=== PATIENT | female | born 1970 | race Caucasian/White ===

== ENCOUNTER 2019-01-31 15:13 | Inpatient (IN) | payer MEDICAID ==
[~2019-01-31] VITALS: Ht 165.1 cm; Wt 71.3 kg
[~2019-01-31 15:13] MED LIST: AMLO-147 PO; DOCU-144 PO; FER325 PO
[2019-01-31] MEDS ORDERED: SOD CHLORIDE 0.9% 500 ML IV STA (15:15)
[2019-01-31] MEDS ORDERED: KETOROLAC 30 MG INJ IV STA (15:26)
[2019-01-31] MEDS ORDERED: FENTAnyl 50 MCG/ML VIAL IV PRN (15:30)
[2019-01-31] MEDS ORDERED: hydrALAzine 20 MG INJ IV ONE (16:00)
[2019-01-31] MEDS ORDERED: ACETAMINOPHEN 325 MG TAB PO PRN (23:00)
[2019-01-31] MEDS ORDERED: ONDANSETRON 4 MG INJ IV PRN (23:00)
[2019-01-31 23:09] VITALS: Ht 165.1 cm; Wt 71.3 kg
[2019-01-31 23:23] VITALS: BP 144/62; PULSE 84; RESP 18
[2019-02-01] VITALS (27 sets, daily range): BP systolic 129–200; BP diastolic 56–91; PULSE 71–91; RESP 14–25
[2019-02-01] MEDS ORDERED: morphine 2 MG INJ IV STA (08:29)
[2019-02-01] MEDS: LACTATED RINGER'S 1,000 ML IV SCH ×2 (09:31→14:42)
[2019-02-01] MEDS ORDERED: SEVOFLURANE 15 MIN ONE (12:15)
[2019-02-01] MEDS ORDERED: FENTAnyl 50 MCG/ML VIAL ONE (12:17)
[2019-02-01] MEDS ORDERED: FAMOTIDINE 20 MG INJ ONE (12:33)
[2019-02-01] MEDS ORDERED: ONDANSETRON 4 MG INJ ONE (12:33)
[2019-02-01] MEDS ORDERED: CEFAZOLIN 1 GM INJ ONE (12:33)
[2019-02-01] MEDS ORDERED: DEXAMETHASONE 4 MG/ML 5 ML INJ ONE (12:33)
[2019-02-01] MEDS ORDERED: PROPOFOL 20 ML ONE (12:33)
[2019-02-01] MEDS ORDERED: LIDOCAINE 2% (SDV) 5 ML INJ ONE (12:33)
[2019-02-01] MEDS ORDERED: HYDROmorphONE 1 MG/5 ML IV SYRINGE IV PRN (13:30)
[2019-02-01] MEDS ORDERED: OXYCODONE/ACETAMINOPHEN (5/325) TAB PO PRN ×2 (13:30)
[2019-02-01] MEDS ORDERED: FENTAnyl 50 MCG/ML VIAL IV PRN ×2 (13:30)
[2019-02-01] MEDS ORDERED: ONDANSETRON 4 MG INJ IV PRN (13:30)
[2019-02-01] MEDS ORDERED: MEPERIDINE 25 MG INJ IV PRN (13:30)
[2019-02-01] MEDS ORDERED: SOD CHLORIDE 0.9% 250 ML IV* ONE (14:02)
[2019-02-01] MEDS: OXYCODONE/ACETAMINOPHEN (5/325) TAB PO PRN ×2 (14:26→20:33)
[2019-02-01] MEDS: POLYETHYLENE GLYCOL 17 GM PACKET GTB SCH ×2 (14:32→20:36)
[2019-02-01] MEDS: SOD FERRIC GLUC COMPLX 125 MG in SOD CHLORIDE 0.9% 100 ML IVPB SCH (14:32)
[2019-02-01] MEDS: LACTULOSE 30ML CUP PO SCH ×2 (14:32→20:33)
[2019-02-01] MEDS: AMLODIPINE 5 MG TAB PO SCH (14:32)
[2019-02-01] MEDS: hydrALAzine 20 MG INJ IV PRN (17:21)
[2019-02-02] MEDS: LACTATED RINGER'S 1,000 ML IV SCH ×4 (00:30→14:14)
[2019-02-02 01:20] VITALS: BP 153/73; PULSE 89; RESP 18
[2019-02-02 01:29] VITALS: BP 145/65; PULSE 77; RESP 18
[2019-02-02] MEDS: OXYCODONE/ACETAMINOPHEN (5/325) TAB PO PRN ×4 (02:43→21:09)
[2019-02-02 07:56] VITALS: BP 129/59; PULSE 87; RESP 18
[2019-02-02] MEDS: POLYETHYLENE GLYCOL 17 GM PACKET GTB SCH ×2 (08:56→21:00)
[2019-02-02] MEDS: AMLODIPINE 5 MG TAB PO SCH (08:56)
[2019-02-02] MEDS: LACTULOSE 30ML CUP PO SCH ×2 (08:56→21:00)
[2019-02-02] MEDS: SOD FERRIC GLUC COMPLX 125 MG in SOD CHLORIDE 0.9% 100 ML IVPB SCH (12:29)
[2019-02-02] MEDS ORDERED: ALBUTEROL/IPRATROPIUM (NEB) 3 ML AMP HHN STA (12:48)
[2019-02-02 15:25] VITALS: BP 141/66; PULSE 86; RESP 19
[2019-02-02] MEDS: ONDANSETRON 4 MG INJ IV PRN (15:26)
[2019-02-02] MEDS: CEFAZOLIN 1 GM/50 ML (PMX) 50 ML IVPB SCH (18:08)
[2019-02-02 19:56] VITALS: BP 155/72; PULSE 84; RESP 20
[2019-02-03] MEDS: LACTATED RINGER'S 1,000 ML IV SCH ×2 (00:51→08:10)
[2019-02-03] MEDS: CEFAZOLIN 1 GM/50 ML (PMX) 50 ML IVPB SCH ×2 (00:52→09:15)
[2019-02-03 01:40] VITALS: BP 161/87; PULSE 78; RESP 19
[2019-02-03 06:30] VITALS: BP 152/80; PULSE 65; RESP 18
[2019-02-03 07:40] VITALS: BP 175/95; PULSE 73; RESP 16
[2019-02-03] MEDS: hydrALAzine 20 MG INJ IV PRN (08:09)
[2019-02-03] MEDS: POLYETHYLENE GLYCOL 17 GM PACKET GTB SCH (09:15)
[2019-02-03] MEDS: LACTULOSE 30ML CUP PO SCH (09:16)
[2019-02-03] MEDS: AMLODIPINE 5 MG TAB PO SCH (09:17)
[2019-02-03] MEDS: OXYCODONE/ACETAMINOPHEN (5/325) TAB PO PRN (09:21)
[2019-02-03 09:24] VITALS: BP 161/70; PULSE 98; RESP 18
[2019-02-03] MEDS: ONDANSETRON 4 MG INJ IV PRN (09:26)
[2019-02-03] MEDS: SOD FERRIC GLUC COMPLX 125 MG in SOD CHLORIDE 0.9% 100 ML IVPB SCH (13:11)
[2019-02-03 13:48] VITALS: BP 140/70; PULSE 78; RESP 18
== END 2019-02-03 14:30 | disposition home or self-care (01) | DRG 742 ==
LOC: E/R 15:13 → 2NE 22:37 → OBSVTOIN 02-02 11:18
PROVIDERS: ADMIT Obstetrics & Gynecology; ATTEND Obstetrics & Gynecology
PROC: 0U5B8ZZ Destruction of Endometrium, Via Natural or Artificial Opening Endoscopic (ICD-10-PCS; 2019-02-01)
PROC: 0UDB8ZX Extraction of Endometrium, Via Natural or Artificial Opening Endoscopic, Diagnostic (ICD-10-PCS; principal; 2019-02-01 11:30)
DX: D25.9 Leiomyoma of uterus, unspecified (principal); D62 Acute posthemorrhagic anemia; D50.9 Iron deficiency anemia, unspecified; N87.1 Moderate cervical dysplasia; I10 Essential (primary) hypertension; I25.10 Atherosclerotic heart disease of native coronary artery without angina pectoris; E11.9 Type 2 diabetes mellitus without complications; F17.210 Nicotine dependence, cigarettes, uncomplicated; G40.909 Epilepsy, unspecified, not intractable, without status epilepticus; Z91.19 Patient's noncompliance with other medical treatment and regimen; Z76.5 Malingerer [conscious simulation]
CPT/HCPCS: 36415; 36430; 71045; 76830; 76856; 80048; 80053; 80061; 80307; 81001; 82962; 83036; 83540; 84703; 85025; 85048; 85610; 85730; 86850; 86870; 86900; 86901; 86902; 86920; 88305; 88331; 94664; 96361; 96374; 96375; G0378; J0360; J0690; J1100; J1885; J2270; J2405; J2916; J3010; J7040; J7120; P9016